=== PATIENT | female | born 1985 ===

== ENCOUNTER 2017-01-21 16:40 | Inpatient (IN) | payer OTHER ==
[2017-01-21] MEDS ORDERED: DINOPROSTONE 10 MG VAGINAL SUPPOSITORY VG ONE (17:18)
[2017-01-21] MEDS ORDERED: BUTORPHANOL TARTRATE 1 MG/ML VIAL IVPB ONE (17:23)
[2017-01-21] MEDS ORDERED: PROMETHAZINE HCL 25 MG/1 ML VIAL IVPUSH ONE (17:23)
--- NOTE | 2017-01-21 17:30 | HP ---
Past Medical History - Admission History of Present Illness: 31 y/o with SIUP at 40.3 weeks here for elective IOL. complicated only by polydactyly noted on ultrasounds done with MFM as well as increased risk for DS 1:182 on serum testing/aneuploidy screening - however NIPS completed and was low risk. Pt RH positive, GBS negative, HIV negative. +FM, no Vb/LOF/CTx. Feeling well. History Source: Patient, Medical Record Limitations to Obtaining History: No Limitations - Past Medical History Cardiovascular: No: HTN Pulmonary: No: Asthma, COPD Hepatobiliary: No: Hepatitis B, Hepatitis C Reproductive: No: Ectopic , Fibroids ...: 1 ...Para: 0 ...Term: 0 ...: 0 ...Spon : 0 ...Induced : 0 ... Weeks Gestation by Dates: 40.3 Heme/Onc: No: Anemia Infectious Disease: No: HIV, MRSA Psych: No: Anxiety, Bipolar, Depression - Past Surgical History Past Surgical History: Yes: None Hx Myomectomy: No Hx Transabdominal Cerclage: No - Smoking History Smoking history: Never smoked Have you smoked in the past 12 months: No - Alcohol/Substance Use Hx Alcohol Use: No History of Substance Use: reports: None - Social History ADL: Independent History of Recent Travel: No Review of Systems - Review of Systems Constitutional: reports: No Symptoms Eyes: reports: No Symptoms HENT: reports: No Symptoms Neck: reports: No Symptoms Cardiovascular: reports: No Symptoms Respiratory: reports: No Symptoms Gastrointestinal: reports: No Symptoms Genitourinary: reports: No Symptoms Breasts: reports: No Symptoms Reported Musculoskeletal: reports: No Symptoms Integumentary: reports: No Symptoms Neurological: reports: No Symptoms Endocrine: reports: No Symptoms Hematology/Lymphatic: reports: No Symptoms Psychiatric: reports: No Symptoms Physical Exam - Maternity Constitutional: Yes: Well Nourished, No Distress, Calm Eyes: Yes: Conjunctiva Clear, EOM Intact HENT: Yes: Atraumatic, Normocephalic Neck: Yes: Supple, Trachea Midline Cardiovascular: Yes: Regular Rate and Rhythm Lungs: Clear to auscultation - Abdominal Exam/OB Number of Fetuses: Single Presentation: Vertex Contractions: Yes Regularity: Irregular Intensity: Unaware Monitor Mode: External Category: I Accelerations: Uniform Decelerations: None - Vaginal Exam/OB Vaginal Bleediing: No Dilatation (cm): 0 Effacement (%): 0 Amniotic Membrane Status: Intact Presentation: Vertex/Position Station: -3 - Physical Exam Psychiatric: Yes: Alert, Oriented Hemorrhage Risk Assessment - Risk Factors Medium Risk Factors: Yes: None High Risk Factors: Yes: None Risk Score: 1 Risk Level: Medium Risk Problem List - Problems (1) Term Code(s): Z34.80 - ENCOUNTER FOR SUPRVSN OF NORMAL , UNSP TRIMESTER (2) Polydactyly Code(s): Q69.9 - POLYDACTYLY, UNSPECIFIED Assessment/Plan 31 y/o with SIUP at 40.3 weeks here for elective IOL - AFVSS - FHTS cat 1 - IOL, cervidil placed at this time, for removal in 12 hours and re evaluate for possible pitocin if cervix ripe - GBS negative
[2017-01-21] MEDS ORDERED: TUBERCULIN PPD 5 TU/0.1ML SYRINGE (IN PATIENT USE ONLY) ID ONE (18:00)
[2017-01-21 18:07] VITALS: BMI 26.1
[2017-01-21 18:57] LABS: BASOPHIL 0.2 % (0-2.0); EOSINOPHIL 0.7 % (0-4.5); MCH 30.3 pg (25.7-33.7); MCHC 33.1 g/dl (32.0-36.0); MEAN CELL VOLUME 91.6 fl (80-96); MEAN PLT VOLUME 9.4 fl (7.5-11.1); NEUTROPHILS 76.9 % (42.8-82.8); PLATELET COUNT 220 K/MM3 (134-434); RDW 13.5 % (11.6-15.6); WHITE BLOOD COUNT 8.3 K/mm3 (4.0-10.0)
[2017-01-21 19:19] LABS: INR 0.97 (0.82-1.09); PROTHROMBIN TIME (PATIENT) 10.7 SEC (9.98-11.88)
[2017-01-21 19:21] LABS: ACTIVATED PTT 26.9 SECONDS (26.9-34.4)
[2017-01-21 19:24] LABS: ANION GAP 9 (8-16); CALCIUM 8.9 mg/dL (8.5-10.1); CO2 24 mmol/L (21-32); CREATININE 0.3 mg/dL (0.55-1.02); GLUCOSE,RANDOM 72 mg/dL (74-106)
[2017-01-22] MEDS: ELECTROLYTE-148 SOLN 1,000 ML IV SCH ×2 (04:50)
[2017-01-22] MEDS ORDERED: DINOPROSTONE 10 MG VAGINAL SUPPOSITORY VG ONE (08:33)
[2017-01-22] MEDS ORDERED: TUBERCULIN PPD 5 TU/0.1ML SYRINGE (IN PATIENT USE ONLY) ID ONE (10:00)
--- NOTE | 2017-01-22 10:27 | PN ---
Ante-Partal Exam - Subjective Subjective: Pt with some cramping overnight, tolerating pain without medication. Vital Signs: Vital Signs Temperature 98.2 F 01/22/17 10:00 Pulse Rate 74 01/22/17 10:00 Respiratory Rate 20 01/22/17 10:00 Blood Pressure 124/86 01/22/17 10:00 O2 Sat by Pulse Oximetry (%) Bleeding: No Headache: No Visual changes: No Right upper quadrant pain: No Pain (scale 1-10): 2 - Contractions Contractions: Yes Regularity: Irregular Intensity: Mild Monitor Mode: External - Exam during Labor Heart Rate: 140 Variability: Moderate Category: I Monitor Decelerations: None Exam: Vaginal Dilatation (cm): 0 Effacement (%): 50 Amniotic Membrane Status: Intact Presentation: Vertex Station: -3 - Assessment/Plan Assessment/Plan: 31 y/o with SIUP at 40.3 weeks, elective IOL - FHTS cat 1 - elective IOL, cervidil removed this a.m., no cervical change. Second cervidil placed this a.m. Will remove this evening and evaluate for possible pitocin vs. need for further cervical ripening - GBS negative
--- NOTE | 2017-01-22 21:16 | PN ---
Ante-Partal Exam - Subjective Subjective: Pt s/p stadol/phenergal for discomfort. Pt states contractions have spaced out. no LOF/Vb/Ctx. +FM Vital Signs: Vital Signs Temperature 98.2 F 01/22/17 18:00 Pulse Rate 66 01/22/17 20:00 Respiratory Rate 20 01/22/17 20:00 Blood Pressure 115/71 01/22/17 20:00 O2 Sat by Pulse Oximetry (%) Bleeding: No Headache: No Visual changes: No Right upper quadrant pain: No Pain (scale 1-10): 2 - Contractions Contractions: Yes Regularity: Irregular Intensity: Mild Monitor Mode: External - Exam during Labor Heart Rate: 130 Variability: Moderate Category: I Exam: Vaginal Dilatation (cm): 2.5 Effacement (%): 50 Presentation: Vertex - Assessment/Plan Assessment/Plan: 31 y/o with SIUP at 40.3 weeks, SIUP - FHTS cat 1 - IOL, s/p cervidil X 2, cervix now ripe, discussed pitocin with patient - GBS negative - pt with anxiety regarding vaginal delivery. Discussed risks and benefits of vaginal vs. delivery in detail. Discussed pitocin, epidural, pain mangement options with patient. Pt to decide if she desires further induction vs. elective delivery.
--- NOTE | 2017-01-22 22:32 | PN ---
Progress Note (short form) - Note Progress Note: Long discussion with patient and family plan of care. Patient desires delivery, does not wish to undergo further labor induction. C section explained in detail including risks (including but not limited to bleeding, infection, risk of damage to surrounding organs, risk of injury to baby etc), discussed benefits vs. alternatives as well. Consents for delivery signed. Pt currently not in labor, contractions spacing out s/p removal of cervidil FHTs cat 1. Will allow patient to eat and plan for delivery in a.m. Problem List - Problems (1) Term Code(s): Z34.80 - ENCOUNTER FOR SUPRVSN OF NORMAL , UNSP TRIMESTER (2) Polydactyly Code(s): Q69.9 - POLYDACTYLY, UNSPECIFIED
[2017-01-23] MEDS: ELECTROLYTE-148 SOLN 1,000 ML IV SCH (02:00)
[2017-01-23] MEDS ORDERED: CITRIC ACID/SODIUM CITRATE 30 ML UNIT-DOSE CUP PO ONE (11:52)
[2017-01-23] MEDS ORDERED: METHYLERGONOVINE MALEATE 0.2 MG/1 ML AMP IM PRN (12:53)
[2017-01-23] MEDS ORDERED: IBUPROFEN 600 MG TABLET (FP) PO PRN (12:53)
[2017-01-23] MEDS ORDERED: OXYTOCIN 20 UNITS in 0.9% NS 1,000 ML IV SCH (13:00)
[2017-01-23] MEDS ORDERED: ONDANSETRON 4 MG/2 ML VIAL IVPUSH PRN (13:39)
--- NOTE | 2017-01-23 13:42 | OP ---
Operative Note - Note: Operative Date: 01/23/17 Pre-Operative Diagnosis: SIUP at 40.4 weeks, elective delivery Operation: primary low transverse delivery Findings: normal b/l tubes and ovaries Surgeon: Dahiana Hennessy Anaesthesiologist: Chase Phillips Anesthesiologist/SOLAR PHOTOVOLTAIC DESIGNER: Riley Marie Anesthesia: Spinal Estimated Blood Loss (mls): 600 Operative Report Dictated: Yes
[2017-01-23] MEDS: ACETAMINOPHEN 1000 MG/100 ML VIAL (NON FORMULARY) IVPB PRN (16:18)
[2017-01-24] MEDS: ACETAMINOPHEN 1000 MG/100 ML VIAL (NON FORMULARY) IVPB PRN (06:10)
[2017-01-24 07:27] LABS: BASOPHIL 0.1 % (0-2.0); EOSINOPHIL 0.4 % (0-4.5); MCH 29.9 pg (25.7-33.7); MCHC 32.7 g/dl (32.0-36.0); MEAN CELL VOLUME 91.6 fl (80-96); MEAN PLT VOLUME 8.9 fl (7.5-11.1); PLATELET COUNT 187 K/MM3 (134-434); RDW 13.1 % (11.6-15.6); WHITE BLOOD COUNT 13.9 K/mm3 (4.0-10.0)
--- NOTE | 2017-01-24 07:59 | PN ---
Post Progress Note - Subjective Subjective: 31 yo Para 1 status post primary , seen and evaluated. She c/o incision pain and urine retention. Post Day: 1 Type of Delivery: Primary C/S Vital Signs: Vital Signs Temperature 99.8 F H 01/24/17 05:57 Pulse Rate 80 01/24/17 05:57 Respiratory Rate 20 01/24/17 05:58 Blood Pressure 104/62 01/24/17 05:57 O2 Sat by Pulse Oximetry (%) 100 01/23/17 14:30 Breast Exam: Yes: Soft Uterus: Yes: Fundus Firm Incision: Yes: Dressing dry and intact Abdomen/GI: Yes: Abdomen soft Lochia: Yes: Rubra Lochia, amount: Small Extremities: Yes: Calves non-tender Perineum: Yes: Intact Activity: Other (She's lying in bed) - Labs Labs: CBC WBC 13.9 K/mm3 (4.0-10.0) H D 01/24/17 06:00 RBC 3.68 M/mm3 (3.60-5.2) 01/24/17 06:00 Hgb 11.0 GM/dL (10.7-15.3) 01/24/17 06:00 Hct 33.7 % (32.4-45.2) 01/24/17 06:00 MCV 91.6 fl (80-96) 01/24/17 06:00 MCH 29.9 pg (25.7-33.7) 01/24/17 06:00 MCHC 32.7 g/dl (32.0-36.0) 01/24/17 06:00 RDW 13.1 % (11.6-15.6) 01/24/17 06:00 Plt Count 187 K/MM3 (134-434) 01/24/17 06:00 MPV 8.9 fl (7.5-11.1) 01/24/17 06:00 Neutrophils % 86.0 % (42.8-82.8) H 01/24/17 06:00 Lymphocytes % 4.5 % (8-40) L D 01/24/17 06:00 Monocytes % 9.0 % (3.8-10.2) 01/24/17 06:00 Eosinophils % 0.4 % (0-4.5) 01/24/17 06:00 Basophils % 0.1 % (0-2.0) 01/24/17 06:00 Problem List - Problems (1) Status post primary low transverse section Code(s): Z98.891 - HISTORY OF UTERINE SCAR FROM PREVIOUS SURGERY Assessment/Plan Status post Urine retention Consider straight catheter if unable to void Ambulation Analgesia as needed Continue post op care
[2017-01-24] MEDS: oxyCODONE HCL 5 MG TABLET PO PRN ×3 (09:57→20:41)
[2017-01-24] MEDS: SIMETHICONE 80 MG TAB.CHEW (FP) PO PRN ×3 (09:57→20:41)
[2017-01-24] MEDS: PRENATAL VITAMINS W/ FOLIC ACID TABLET (FP) PO SCH (10:22)
--- NOTE | 2017-01-24 13:49 | PN ---
Progress Note (short form) - Note Progress Note: POD #1 - s/p under spinal anesthesia with duramorph. VSS. Ambulating from the bathroom to bed. No apparent anesthetic complications noted. Continue current care.
[2017-01-24] MEDS: ACETAMINOPHEN 325 MG TABLET (FP) PO PRN ×2 (13:50→20:41)
--- NOTE | 2017-01-24 15:31 | OP ---
DATE OF OPERATION: 01/23/2017 PREOPERATIVE DIAGNOSIS: Elective primary section. POSTOPERATIVE DIAGNOSIS: Elective primary section. PROCEDURE: Primary low transverse section. SURGEON: Dahiana Hennessy DO PUMP HOUSE TECHNICIAN: THOM Shafer ANESTHESIA: Spinal with Riley Marie MD ESTIMATED BLOOD LOSS: 600 mL SPECIMENS REMOVED: Placenta and cord blood. COMPLICATIONS: None. DISPOSITION: Stable to PACU. COUNTS: Sponge, needle, and instrument count correct at the end of the case. BRIEF HISTORY AND DESCRIPTION OF PROCEDURE: Patient is a 31-year-old G1, P0 who had been admitted to [facility] on January 21, 2017, for elective induction of labor. The patient received two Cervidil over a 24-hour period and had made progress to cm dilated. On the evening of January 22, 2017, the patient was given her options, including Pitocin augmentation of labor. The patient declined all induction options and elected to undergo a primary section. As the patient was not in labor and heart tones were normal, the plan was made to proceed with the elective section in the morning on January 23, 2017. On January 23, 2017, consents for the procedure were . The patient was taken back to the operating room where she was given spinal anesthesia by Dr. Marie, placed in the dorsal supine position, and a Winter catheter was placed under sterile conditions. She was prepped and draped, and a hard timeout was performed. A Pfannenstiel skin incision was created in the skin with a scalpel and carried to the underlying layer of rectus fascia with the scalpel as well as with the Bovie. The fascia was incised on either side of midline with the Bovie, and the fascial incision was carried in a superolateral direction bluntly as well as with the Bovie. The fascia was tented upward and dissected off the underlying layer of rectus muscle with the Bovie. The rectus muscle was retracted laterally and then the peritoneum was entered bluntly. A bladder blade was then inserted. A transverse incision was created on the uterus which was extended in a superolateral direction bluntly. The was then delivered from the right occiput transverse position without any issues. Bilateral shoulders and the remainder of the delivered with ease, and the cord was clamped twice and cut in between after delayed cord clamping was completed, and the baby was taken over to the warmer to be assessed by the neonatology staff who were present for the entire delivery. Placenta was then delivered intact and manually extracted. The uterus was exteriorized from the abdomen, inspected and cleared of all amniotic membrane and debris with a dry lap sponge. The hysterotomy was reapproximated in 2 layers in a running locked fashion, first with 1 Vicryl and then with 0 Biosyn suture. Excellent hemostasis was achieved. Bilateral tubes and ovaries were normal. The uterus was placed back into the abdomen. Bilateral gutters were inspected and cleared of all debris and blood clot. The hysterotomy again was inspected and noted to be hemostatic. The peritoneal layer was reapproximated in a running fashion using 2-0 chromic suture. The musculature was reapproximated in 2 interrupted sutures, and the fascia was reapproximated using 1 Vicryl in a running fashion. Subcutaneous tissue was irrigated and reapproximated using interrupted sutures using 1 Vicryl, and the skin was reapproximated in a subcuticular fashion using 3-0 Vicryl suture. Steri-Strips were applied. Sponge, needle, and instrument counts were correct. The patient tolerated the procedure well, recovering in stable condition on the labor and delivery floor at the time of this dictation. DAHIANA HENNESSY DO /[id number]
[2017-01-25] MEDS: SIMETHICONE 80 MG TAB.CHEW (FP) PO PRN ×4 (04:15→19:55)
[2017-01-25] MEDS: ACETAMINOPHEN 325 MG TABLET (FP) PO PRN ×4 (04:16→19:55)
[2017-01-25] MEDS: oxyCODONE HCL 5 MG TABLET PO PRN ×4 (04:16→19:56)
[2017-01-25] MEDS: BISACODYL 10 MG SUPP.RECT RC PRN (08:22)
--- NOTE | 2017-01-25 08:55 | PN ---
Post Progress Note - Subjective Subjective: 31 yo Para 1, status post primary , seen and evaluated. Doing well. Post Day: 2 Type of Delivery: Primary C/S Vital Signs: Vital Signs Temperature 99.3 F 01/24/17 22:00 Pulse Rate 81 01/24/17 22:00 Respiratory Rate 20 01/24/17 22:00 Blood Pressure 110/70 01/24/17 22:00 O2 Sat by Pulse Oximetry (%) 100 01/23/17 14:30 Breast Exam: Yes: Soft Uterus: Yes: Fundus Firm Incision: Yes: Moe intact Abdomen/GI: Yes: Abdomen soft, Tolerating PO Lochia: Yes: Rubra Lochia, amount: Small Extremities: Yes: Calves non-tender Perineum: Yes: Intact Activity: Ambulating - Labs Labs: CBC WBC 13.9 K/mm3 (4.0-10.0) H D 01/24/17 06:00 RBC 3.68 M/mm3 (3.60-5.2) 01/24/17 06:00 Hgb 11.0 GM/dL (10.7-15.3) 01/24/17 06:00 Hct 33.7 % (32.4-45.2) 01/24/17 06:00 MCV 91.6 fl (80-96) 01/24/17 06:00 MCH 29.9 pg (25.7-33.7) 01/24/17 06:00 MCHC 32.7 g/dl (32.0-36.0) 01/24/17 06:00 RDW 13.1 % (11.6-15.6) 01/24/17 06:00 Plt Count 187 K/MM3 (134-434) 01/24/17 06:00 MPV 8.9 fl (7.5-11.1) 01/24/17 06:00 Neutrophils % 86.0 % (42.8-82.8) H 01/24/17 06:00 Lymphocytes % 4.5 % (8-40) L D 01/24/17 06:00 Monocytes % 9.0 % (3.8-10.2) 01/24/17 06:00 Eosinophils % 0.4 % (0-4.5) 01/24/17 06:00 Basophils % 0.1 % (0-2.0) 01/24/17 06:00 Problem List - Problems (1) Status post primary low transverse section Code(s): Z98.891 - HISTORY OF UTERINE SCAR FROM PREVIOUS SURGERY Assessment/Plan Status post Stable Continue routine Post op care
[2017-01-25] MEDS: PRENATAL VITAMINS W/ FOLIC ACID TABLET (FP) PO SCH (09:51)
[2017-01-26 02:02] VITALS: BP 111/64; PULSE 69; TEMP 98.7
[2017-01-26 08:44] LABS: BASOPHIL 0.3 % (0-2.0); EOSINOPHIL 0.9 % (0-4.5); MCH 29.8 pg (25.7-33.7); MCHC 32.3 g/dl (32.0-36.0); MEAN CELL VOLUME 92.3 fl (80-96); MEAN PLT VOLUME 8.7 fl (7.5-11.1); NEUTROPHILS 82.8 % (42.8-82.8); PLATELET COUNT 234 K/MM3 (134-434); RDW 13.7 % (11.6-15.6); WHITE BLOOD COUNT 9.7 K/mm3 (4.0-10.0)
[2017-01-26] MEDS: BISACODYL 10 MG SUPP.RECT RC PRN (09:43)
[2017-01-26] MEDS: SIMETHICONE 80 MG TAB.CHEW (FP) PO PRN (09:43)
[2017-01-26] MEDS: PRENATAL VITAMINS W/ FOLIC ACID TABLET (FP) PO SCH (09:43)
[2017-01-26] MEDS: oxyCODONE HCL 5 MG TABLET PO PRN (09:43)
[2017-01-26] MEDS: ACETAMINOPHEN 325 MG TABLET (FP) PO PRN (09:44)
--- NOTE | 2017-01-28 16:24 | PATH ---
Surgical Pathology Report Patient Name: YOSEPH WILD [facility]. Rec. #: [id number] /Age/Gender: 1985 (Age: 31) / F Account: [id number] Location: [facility] OBS/ANIMAL COP Taken: 01/23/2017 Received: 01/24/2017 Reported: 01/28/2017 Physicians: Dahiana Hennessy M.D. Specimen(s) Received PLACENTA Clinical History , 40 weeks Primary c/section Final Diagnosis PLACENTA, DELIVERY: FOCALLY DISRUPTED THIRD TRIMESTER PLACENTA WITH MODERATE IN PREVILLOUS, PERIVILLOUS, AND PRECHORIONIC FIBRIN DEPOSITION, THREE VESSEL UMBILICAL CORD, AND PLACENTAL MEMBRANES WITH FOCAL AMNION HYPERPLASIA. Electronically Signed Tesfaye Byrne M.D. Gross Description The specimen is received fresh, labeled "placenta" and is a 434 gram, 20.0 x 14.5 x 1.5 cm. placenta with attached membranes and umbilical cord. The attached membranes are mendez, translucent with focal opacities and insert marginally. The umbilical cord measures 33 cm in length and averages 1.3 cm in diameter. The cord inserts eccentrically, 5 cm to the nearest margin. No true knots or strictures are identified. Cut surface of the umbilical cord reveals 3 vessels. The surface is montalvo-blue with fibrin deposition and appropriate caliber vessels. The maternal surface is red-brown with focal defects. Sectioning reveals red-brown, spongy parenchyma. No focal lesions are identified. [employer] Operator sections are submitted in three cassettes as follows: 1- membrane rolls and umbilical cord; 2-3- full thickness sections of placenta. /01/24/2017 [facility]01/24/2017
== END 2017-01-26 16:00 | disposition home or self-care (01) | DRG 766 ==
LOC: JLDR 16:40 → J3W 01-23 15:26
PROVIDERS: ADMIT Obstetrics & Gynecology; ATTEND Obstetrics & Gynecology
PROC: 10D00Z1 Extraction of Products of Conception, Low, Open Approach (ICD-10-PCS; principal; 2017-01-21)
PROC: 3E0P7GC Introduction of Other Therapeutic Substance into Female Reproductive, Via Natural or Artificial Opening (ICD-10-PCS; 2017-01-21)
PROC: 4A1HXCZ Monitoring of Products of Conception, Cardiac Rate, External Approach (ICD-10-PCS; 2017-01-21)
DX: O48.0 Post-term pregnancy (principal); O36.0930 Maternal care for other rhesus isoimmunization, third trimester, not applicable or unspecified; O35.8XX0 Maternal care for other (suspected) fetal abnormality and damage, not applicable or unspecified; O75.89 Other specified complications of labor and delivery; R33.9 Retention of urine, unspecified; Z3A.40 40 weeks gestation of pregnancy; Z37.0 Single live birth
CPT/HCPCS: 36415; 80048; 85025; 85610; 85730; 86593; 86762; 86850; 86900; 86901; 88307-TC